=== PATIENT | male | born 1950 ===

== ENCOUNTER 2018-07-11 09:02 | Emergency (ER) | payer SELFPAY ==
[2018-07-11 09:24] VITALS: BMI 24.7
[2018-07-11 09:25] VITALS: RESP 18
--- NOTE | 2018-07-11 10:19 | ED PDOC ---
HPI: General Adult Time Seen by Provider: 07/11/18 09:12 Chief Complaint (Nursing): Lower Extremity Problem/Injury Chief Complaint (Provider): Extremity numbness History Per: Patient, Manager Product Design (Walter #[id number]) Additional Complaint(s): Pt reports few month history of bilateral arm and leg numbness. Pt visiting from [facility] and will be returning there on 08/08/18. Denies CP, SOB, weakness, difficulty ambulating, PANCHAL. Past Medical History Reviewed: Nursing Documentation, Vital Signs Vital Signs: Last Vital Signs Temp 98.3 F 07/11/18 09:24 Pulse 65 07/11/18 09:24 Resp 18 07/11/18 09:24 BP 185/86 H 07/11/18 09:24 Pulse Ox 99 07/11/18 09:24 - Medical History PMH: CHF, Diabetes, HTN - Family History Family History: States: Unknown Family Hx - Social History Current smoker - smoking cessation education provided: No Alcohol: None - Allergies Allergies/Adverse Reactions: Allergies Allergy/AdvReac Type Severity Reaction Status Date / Time No Known Allergies Allergy Verified 07/11/18 09:56 Review of Systems Constitutional: Negative for: Fever, Chills Eyes: Negative for: Vision Change Cardiovascular: Negative for: Chest Pain, Palpitations Respiratory: Negative for: Cough, Shortness of Breath Skin: Negative for: Rash, Lesions Neurological: Positive for: Numbness. Negative for: Headache, Dizziness Physical Exam - Reviewed Nursing Documentation Reviewed: Yes Vital Signs Reviewed: Yes - Physical Exam Appears: Positive for: Well, No Acute Distress Head Exam: Positive for: ATRAUMATIC, NORMAL INSPECTION Skin: Positive for: Normal Color, Warm, Dry Eye Exam: Positive for: Normal appearance, EOMI, PERRL Cardiovascular/Chest: Positive for: Regular Rate, Rhythm Respiratory: Positive for: Normal Breath Sounds. Negative for: Rales, Rhonchi, Wheezing Gastrointestinal/Abdominal: Positive for: Normal Exam Extremity: Positive for: Normal ROM. Negative for: Pedal Edema, Deformity Neurological/Psych: Positive for: Awake, Alert, Oriented, Gait (WNL), certified control systems technician II- XII. Negative for: Motor/Sensory Deficits, Facial Droop - Laboratory Results Result Diagrams: 07/11/18 11:10 07/11/18 11:10 - ECG Interpretation Of ECG: A flutter @ 66. O2 Sat by Pulse Oximetry: 99 Pulse Ox Interpretation: Normal Medical Decision Making Medical Decision Makin yo male with chronic extremity numbness. - labs - EKG - CXR - Doppler ultrasound Accession No. : [id number] Patient Name / ID : TAYA MARTINEZ / [id number] Exam Date : 07/11/2018 12:24:32 ( Approved ) Study Comment : Sex / Age : M / 67Y Creator : Mao Arceo MD Dictator : Mao Arceo MD Senior Environmental Engineer : Network [employer] Supervisor : Mao Arceo MD Approver2 : Report Date : 07/11/2018 13:28:37 My Comment : Date of service: 07/11/2018 HISTORY: Leg swelling COMPARISON: No prior. TECHNIQUE: Chest PA and lateral FINDINGS: LUNGS: No active pulmonary disease. PLEURA: No significant pleural effusion identified. No pneumothorax apparent. CARDIOVASCULAR: No aortic atherosclerotic calcification present. Mild cardiomegaly is present. No pulmonary vascular congestion. OSSEOUS STRUCTURES: No significant abnormalities. VISUALIZED UPPER ABDOMEN: Normal. OTHER FINDINGS: None. IMPRESSION: Mild cardiomegaly. No pulmonary vascular congestion. No acute pulmonary findings bilaterally. Accession No. : [id number] Patient Name / ID : TAYA MARTINEZ / [id number] Exam Date : 07/11/2018 13:08:11 ( Approved ) Study Comment : Sex / Age : M / 67Y Creator : Jason Rojas MD Dictator : Jason Rojas MD Senior Environmental Engineer : [employer] Supervisor : Jason Rojas MD Approver2 : Report Date : 07/11/2018 14:54:25 My Comment : This report is currently processing and HAS NOT BEEN OFFICIALLY SIGNED BY THE PHYSICIAN - ESTIMATED TIME OF APPROVAL IS 07/11/2018 14:59. Date of service: 07/11/2018 PROCEDURE: Bilateral lower extremity venous duplex Doppler. HISTORY: Bilateral leg swelling COMPARISON: None available. TECHNIQUE: Bilateral common femoral, superficial femoral, popliteal and posterior tibial veins were evaluated. Flow was assessed with color Doppler, compressibility, assessment of phasic flow and augmentation response. FINDINGS: COMMON FEMORAL VEIN: Right CFV: Unremarkable. Left CFV: Unremarkable. SUPERFICIAL FEMORAL VEIN: Right SFV: Unremarkable. Left SFV: Unremarkable. POPLITEAL VEIN: Right Popliteal: Unremarkable. Left Popliteal: Unremarkable. POSTERIOR TIBIAL VEIN: Right PTV: Unremarkable. Left PTV: Unremarkable. OTHER FINDINGS: Prominent bilateral inguinal lymph nodes on the right measuring 3.2 x 2.1 x 0.7 cm and on the left measuring 3.3 x 1.4 x 0.6 cm. Prominent bilateral inguinal lymph nodes. IMPRESSION: No evidence of deep venous thrombosis. Disposition - Clinical Impression Clinical Impression: Diabetic neuropathy - Patient ED Disposition Is Patient to be Admitted: No - Disposition Disposition: Routine/Home Disposition Time: 14:56 Condition: STABLE Instructions: Diabetic Neuropathy (DC) Forms: [facility] (Japanese) Print Language: GUINEAN
[2018-07-11 11:30] LABS: BASO # 0.1 K/uL (0.0-0.2); BASO % 0.8 % (0.0-2.0); EOS # 0.6 K/uL (0.0-0.7); HEMOGLOBIN 14.5 g/dL (12.0-18.0); LYMPH # 1.6 K/uL (1.0-4.3); LYMPH % 17.8 % (20.0-40.0); MEAN CELL VOLUME 89.1 fl (80.0-94.0); MEAN CORPUSCULAR HEMOGLOBIN 30.5 pg (27.0-31.0); MEAN CORPUSCULAR HGB CONC 34.3 g/dL (33.0-37.0); MEAN PLATELET VOLUME 8.4 fl (7.2-11.7); MONO # 0.6 K/uL (0.0-0.8); MONO % 6.7 % (0.0-10.0); NEUT # 5.9 K/uL (1.8-7.0); NEUT % 67.7 % (50.0-75.0); RBC 4.74 Mil/uL (4.40-5.90); RED CELL DISTRIBUTION WIDTH 14.3 % (11.5-14.5); WHITE BLOOD COUNT 8.8 K/uL (4.8-10.8)
[2018-07-11 11:37] LABS: SQUAMOUS EPITHIAL < 1 /hpf (0-5); URINE BILIRUBIN NEGATIVE (NEGATIVE); URINE BLOOD NEGATIVE (NEGATIVE); URINE CLARITY CLEAR (Clear); URINE COLOR YELLOW (YELLOW); URINE GLUCOSE (UA) NEG (NEGATIVE); URINE LEUKOCYTE ESTERASE NEG Leu/uL (Negative); URINE PROTEIN >=500 mg/dL (NEGATIVE); URINE UROBILINOGEN 0.2-1.0 mg/dL (0.2-1.0)
[2018-07-11 11:43] LABS: ALB/GLOB RATIO 1.1 (1.0-2.1); ALBUMIN 3.9 g/dL (3.5-5.0); CALCIUM 9.5 mg/dL (8.4-10.2)
--- NOTE | 2018-07-11 13:32 | RAD ---
Date of service: 07/11/2018 HISTORY: Leg swelling COMPARISON: No prior. TECHNIQUE: Chest PA and lateral FINDINGS: LUNGS: No active pulmonary disease. PLEURA: No significant pleural effusion identified. No pneumothorax apparent. CARDIOVASCULAR: No aortic atherosclerotic calcification present. Mild cardiomegaly is present. No pulmonary vascular congestion. OSSEOUS STRUCTURES: No significant abnormalities. VISUALIZED UPPER ABDOMEN: Normal. OTHER FINDINGS: None. IMPRESSION: Mild cardiomegaly. No pulmonary vascular congestion. No acute pulmonary findings bilaterally.
--- NOTE | 2018-07-11 14:58 | US ---
Date of service: 07/11/2018 PROCEDURE: Bilateral lower extremity venous duplex Doppler. HISTORY: Bilateral leg swelling COMPARISON: None available. TECHNIQUE: Bilateral common femoral, superficial femoral, popliteal and posterior tibial veins were evaluated. Flow was assessed with color Doppler, compressibility, assessment of phasic flow and augmentation response. FINDINGS: COMMON FEMORAL VEIN: Right CFV: Unremarkable. Left CFV: Unremarkable. SUPERFICIAL FEMORAL VEIN: Right SFV: Unremarkable. Left SFV: Unremarkable. POPLITEAL VEIN: Right Popliteal: Unremarkable. Left Popliteal: Unremarkable. POSTERIOR TIBIAL VEIN: Right PTV: Unremarkable. Left PTV: Unremarkable. OTHER FINDINGS: Prominent bilateral inguinal lymph nodes on the right measuring 3.2 x 2.1 x 0.7 cm and on the left measuring 3.3 x 1.4 x 0.6 cm. Prominent bilateral inguinal lymph nodes. IMPRESSION: No evidence of deep venous thrombosis.
[2018-07-11 15:33] VITALS: BP 169/83; PULSE 62; TEMP 98.8; O2SAT 96
--- NOTE | 2018-07-12 21:15 | CARD ---
APPROVED REPORT Date of service: 07/11/2018 EKG Measurement Heart [id number] <Conclusion> Normal sinus rhythm Possible Inferior infarct, age undetermined Abnormal ECG
== END 2018-07-11 15:28 | disposition home or self-care (01) ==
LOC: H.ER 09:02
DX: E11.40 Type 2 diabetes mellitus with diabetic neuropathy, unspecified (principal); I11.0 Hypertensive heart disease with heart failure